=== PATIENT | male | born 1970 | race Caucasian/White ===

== ENCOUNTER 2021-01-13 06:39 | Day surgery (SDC) | payer BC, MEDICARE ==
[2021-01-13] MEDS ORDERED: Sodium Chloride 0.9% 1,000 ML IV SCH (07:00)
[2021-01-13] MEDS ORDERED: Propofol 200 MG/20 ML SDV ONE ×2 (07:10→08:03)
[2021-01-13] MEDS ORDERED: fentaNYL 100 MCG/2 ML SDV ONE (07:10)
[2021-01-13] MEDS ORDERED: Midazolam 1 MG/ML 2 ML SDV ONE (07:10)
--- NOTE | 2021-01-13 11:22 | OR ---
DATE OF PROCEDURE: 01/13/2021 SURGEON: Alfonso Morales MD PROCEDURE: Colonoscopy. FINDINGS: 1. Transverse colon polyp, approximately 5 mm, completely removed using cold biopsy forceps. 2. Moderately tortuous sigmoid colon. 3. Diverticulosis, very mild, mostly concentrated in the sigmoid colon. COMPLICATIONS: None. PAINTER HELPER SIGN: None. ANESTHESIA: MAC. PREOPERATIVE DIAGNOSIS: Screening colonoscopy. POSTOPERATIVE DIAGNOSIS: Screening colonoscopy. RISKS: Risks, benefits, alternatives, and limitations including, but not limited to infection, bleeding, perforation, false positives, and false negatives were explained to the patient and he wished to proceed. PROCEDURE IN DETAIL: The patient was placed in left lateral decubitus position. Digital rectal exam was performed without abnormality. Scope was introduced and advanced atraumatically to the ileocecal valve. A photo was taken of the appendiceal orifice. Scope was brought back to the ascending, transverse, descending colon, and retroflexed. The aforementioned polyp was identified and completely removed. No evidence of old or new blood. No masses. No colitis. The diverticulosis was described as very mild without evidence of diverticulitis or bleeding. No abnormalities on retroflexion. The patient's tortuosity in the sigmoid colon was moderate in nature. Greater than 8 minutes was spent removing the scope. The prep was acceptable, approximately 90% of the luminal surface could be seen. The patient tolerated the procedure well. Alfonso Morales MD /[id number]
== END 2021-01-13 09:15 | disposition home or self-care (01) ==
LOC: JP.SDS 06:39
PROVIDERS: ATTEND Surgery
DX: Z12.11 Encounter for screening for malignant neoplasm of colon (principal); K63.5 Polyp of colon; K57.30 Diverticulosis of large intestine without perforation or abscess without bleeding; I10 Essential (primary) hypertension; F17.200 Nicotine dependence, unspecified, uncomplicated
CPT/HCPCS: 45380; J2250; J2704; J3010; J7030